=== PATIENT | female | born 1965 | race Caucasian/White ===

== ENCOUNTER → 2019-05-25 | Outpatient (CLI) | payer MEDICARE, BC ==
[~2019-05-25] VITALS: Ht 160 cm; Wt 84.8 kg
[2019-05-25 13:17] LABS: HEMOGLOBIN 12.9 gm/dL (12.0-15.0); MCH 31.7 pg (26.0-34.0); MCHC 34.8 g/dL (28.0-37.0); MCV 91.2 fL (80.0-100.0); MPV 9.9 fl. (7.2-11.1); RBC 4.05 mil/uL (4.20-5.00); RDW-CV 13.9 % (10.5-14.5); WBC 9.2 thou/uL (4.0-11.0)
[2019-05-25 13:28] LABS: ANION GAP 7 mmol/L (7-16); APTT 27.6 Seconds (25.0-31.3); BUN 5 mg/dL (7-18); CALCIUM 9.6 mg/dL (8.5-10.1); CHLORIDE 104 mmol/L (98-107); CO2 28 mmol/L (21-32); CREATININE 0.9 mg/dL (0.6-1.3); GLUCOSE 121 mg/dL (70-99); POTASSIUM 3.9 mmol/L (3.5-5.1); PROTIME 10.3 Seconds (9.20-11.50); SODIUM 139 mmol/L (136-145)
[2019-05-25 13:30] VITALS: BP 130/88
[2019-05-25 13:33] LABS: CHOLESTEROL 189 mg/dL (<200); HDL CHOLESTEROL 41 mg/dL (>40); LDL CHOLESTEROL 113 mg/dL (<100); TC:HDL 4.6 Ratio (Not establshd); TRIGLYCERIDE 178 mg/dL (<150); VLDL 36 mg/dL (<40)
[2019-05-25 13:35] LABS: SERUM ASSESSMENT Clear
[2019-05-25 15:10] VITALS: BP 112/62
[2019-05-25 15:30] VITALS: BP 112/65
[2019-05-25 15:45] VITALS: BP 97/58
[2019-05-25 16:00] VITALS: BP 108/60
[2019-05-25 16:30] VITALS: BP 107/62
--- NOTE | 2019-05-25 17:31 | EKG ---
[place] [address] ELECTROCARDIOGRAM REPORT Name: KIMBERLY CORBETT Room: [facility]#: [id number] Admission: 05/25/19 Attend Phys: Cole Cole MD Discharge: Date of : 61 Report #: [id number] THIS REPORT FOR: //name// [facility] Test Date: 2019-05-25 Test Time: 13:09:27 Pat Name: KIMBERLY DRAKEONNELL Department: Room: Gender: F Supervisor Cloth Winding: : 1965 Requested By: Cole Cole Order Number: [id number] Reading MD: Cole Cole Measurements Intervals [place] Rate: 74 P: 9 KS: 141 QRS: 50 QRSD: 105 T: 24 QT: 412 QTc: 457 Interpretive Statements Sinus rhythm Nonspecific T abnormalities, anterior leads No previous ECG available for comparison Electronically Signed On 05-25-2019 17:31:18 [employer] by Cole Cole [email or web address] <ELECTRONICALLY SIGNED> By: Cole Cole MD, [facility] 05/25/19 1731 1309 1309 Cole Cole MD, FACC /EPI
--- NOTE | 2019-05-25 18:04 | CARD ---
[address] [address] CARDIAC CATH REPORT Name: KIMBERLY CORBETT Room: [facility]#: [id number] Admission: 05/25/19 Attend Phys: Cole Cole MD Discharge: Date of : 61 Report #: [id number] THIS REPORT FOR: //name// APPROVED REPORT Study performed: 05/25/2019 14:07:12 Patient Details The patient is a 53 year-old female Event Personnel Cole Cole Still Operator Brandy, Lima Tolentino RN Headstart Teacher, Dustin Carrillo MUSIC AGENT Monitor, Monica Patel RTR Scrub Procedures Performed Left Heart Cath w/or w/o Coronaries [id number] [facility] Procedure Narrative A 6fr Ultimum Sheath sheath was inserted into the . Coronary angiography was performed using coronary diagnostic catheters. The right coronary system was accessed and visualized with a JL4 catheter. The left coronary system was accessed and visualized with a JR4 catheter. The left ventricle was accessed and visualized with a PIG catheter. The patient tolerated the procedure well and there were no complications associated with the procedure. Intraoperative Conscious Sedation Fentanyl 25 mcg Dose: 352 mGy Contrast Type and Amount: Visipaque 110 ml Diagnostic Cath Left Main The left main is normal and bifurcates into a left anterior descending and circumflex was coronary artery. LAD The left anterior descending coronary artery is normal in its proximal mid and distal portion. Diagonal 1 The first diagonal is small in caliber and normal. Diagonal 2 The second diagonal is moderate in caliber and normal. Circumflex The circumflex coronary artery is normal in its proximal mid and distal portion. OM1 The first obtuse marginal branch has a high takeoff and is small in [place] [address] CARDIAC CATH REPORT Name: KIMBERLY CORBETT Room: [facility]#: [id number] Admission: 05/25/19 Attend Phys: Cole Cole MD Discharge: Date of : 61 Report #: [id number] OM2 Moderate in caliber and normal. OM3 Moderate in caliber and normal. Right Coronary The right coronary artery is normal in its proximal mid and distal portion. R PDA The PDA is normal. RPLV The right posterior lateral LV branch is normal. Left Ventriculography The left ventricle is normal in size with normal contractility. The left ventricular ejection fraction is estimated to be 60-65%. Hemodynamics The aortic pressure is 124/60 mmHg with a mean of 77 mmHg. The left ventricular pressure is 76/1 mmHg with a mean of mmHg. The left ventricular end diastolic pressure is 12 mmHg. Conclusion 1. Normal coronary arteries. 2. Normal left particular systolic function. 3. Normal left ventricular end-diastolic pressure. Recommendations 1. Continue current medical management. <ELECTRONICALLY SIGNED> By: Cole Cole MD, [facility] 05/25/19 1804 180 180[facility] MD, JACQUELINE /INF
== END | disposition home or self-care (01) ==
LOC: M.CL 12:19
PROVIDERS: Internal Medicine Cardiovascular Disease
DX: R07.9 Chest pain, unspecified (principal); I10 Essential (primary) hypertension; J44.9 Chronic obstructive pulmonary disease, unspecified; E78.00 Pure hypercholesterolemia, unspecified; F17.210 Nicotine dependence, cigarettes, uncomplicated; Z79.899 Other long term (current) drug therapy; Z82.49 Family history of ischemic heart disease and other diseases of the circulatory system